=== PATIENT | male | born 1970 | race Caucasian/White ===

== ENCOUNTER 2017-11-07 21:39 | Emergency (ER) | payer BC, OTHER ==
[~2017-11-07] VITALS: Ht 188 cm; Wt 106.0 kg
[2017-11-07 21:48] VITALS: BP 129/81
[2017-11-07] MEDS ORDERED: DEXAMETHASONE 4 MG TABLET ONE (23:30)
[2017-11-07] MEDS ORDERED: DEXAMETHASONE 4 MG TABLET PO ONE (23:30)
== END 2017-11-08 00:12 | disposition home or self-care (01) ==
LOC: ED 22:20
DX: J02.8 Acute pharyngitis due to other specified organisms (principal); B97.89 Other viral agents as the cause of diseases classified elsewhere
CPT/HCPCS: 87081; 87880; 99284